=== PATIENT | male | born 1990 | race Caucasian/White ===

== ENCOUNTER 2023-06-04 19:29 | Emergency (ER) | payer OTHER, SELFPAY ==
[2023-06-04] VITALS (21 sets, daily range): BP systolic 123–152; BP diastolic 74–108; PULSE 78–98; RESP 14–25; TEMP 36.9; O2SAT 95–98; BMI 25.7
[2023-06-04] MEDS: EPINEPHrine 1 MG/ML 0.3 MG IM (19:40)
[2023-06-04] MEDS: methylPREDNISolone 125 MG/2 ML VIAL IV (19:40)
[2023-06-04] MEDS: SODIUM CHLORIDE 0.9% 1,000 ML 1000 ML IV (19:41)
[2023-06-04] MEDS: diphenhydrAMINE 50 MG/ML VIAL IV (19:41)
[2023-06-04] MEDS: FAMOTIDINE 20 MG/2 ML VIAL IV (19:41)
[2023-06-04] MEDS: ALBUTEROL 2.5 MG/3 ML NEB (ADULT) INH (19:41)
[2023-06-04 19:50] LABS: Add Manual Diff / Slide Review NO; Basophils Absolute Auto 0 /uL (0-100); Basophils Percent Auto 0.5 % (0-2); Eosinophils Absolute Auto 100 /uL (0-450); Eosinophils Percent Auto 0.6 % (2-4); Hematocrit 49.8 % (41-53); Hemoglobin 17.4 g/dL (13.5-17.5); Lymphocytes Absolute Auto 2200 /uL (1100-4500); Lymphocytes Percent Auto 23.5 % (25-40); Mean Corpuscular HGB Conc 34.9 % (30-36); Mean Corpuscular Volume 91.7 fL (80-100); Monocytes Absolute Auto 600 /uL (0-900); Monocytes Percent Auto 6.5 % (3-14); Neutrophils Absolute Auto 6500 /uL (1500-7000); Neutrophils Percent Auto 68.9 % (50-75); Platelet Count 250 X10^3/uL (150-400); Red Blood Cell Count 5.43 X10^6/uL (4.5-5.9); Red Cell Distribution Width 12.8 % (11.6-14.8); White Blood Cell Count 9.4 X10^3/uL (4.5-11.0)
[2023-06-04 20:04] LABS: Alanine Aminotransferase 35 IU/L (<50); Albumin 4.6 g/dL (3.5-5.0); Albumin Globulin Ratio 1.3 (1.0-2.8); Alkaline Phosphatase 54 U/L (38-126); Aspartate Aminotransferase 40 IU/L (17-59); BUN Creatinine Ratio 13.1 (6-22); Bilirubin Total 0.8 mg/dL (0.2-1.3); Blood Urea Nitrogen 14 mg/dL (9-20); Calcium 9.6 mg/dL (8.4-10.2); Carbon Dioxide 27 mmol/L (22-32); Chloride 101 mmol/L (98-107); Estimated Glomerular Filt Rate > 60 mL/min (>60); Globulin 3.6 g/dL (1.7-4.1); Glucose 101 mg/dL (70-100); HEMOLYSIS 35 (0-50); Lipase 258 U/L (23-300); Potassium 3.6 mmol/L (3.4-5.1); Sodium 138 mmol/L (137-145); Total Protein 8.2 g/dL (6.3-8.2)
--- NOTE | 2023-06-04 23:32 | ED.ALLEREA ---
HPI - Allergic Reaction General Chief complaint: Allergic Reaction Stated complaint: allergic reaction to crab/trouble breathing Time Seen by Provider: 06/04/23 19:37 Source: patient Mode of arrival: Ambulatory History of Present Illness HPI narrative: 32-year-old gentleman who was that he allergic to crab manage to eat some crab and within 30 minutes was having significant difficulty breathing and presents to the emergency department. He is flushed, complaining of throat tightness, has audible wheeze with some facial swelling developing. He notes no other recent illnesses and has been well until he had crab with his dinner this evening. Related Data Previous Rx's Medication Instructions Recorded epinephrine 0.3 mg/0.3 mL 0.3 mg (0.3 mL) IM Q4H PRN 06/04/23 injection, auto-injector anaphylaxis #2 ea prednisone 10 mg tablet 10 mg PO DAILY #5 tabs 06/04/23 Allergies Allergy/AdvReac Type Severity Reaction Status Date / Time shellfish derived Allergy Difficulty Verified 06/04/23 19:41 Breathing Review of Systems Review of Systems Narrative: Pertinent positive and negative findings as per HPI Patient History Medical History (Updated 06/04/23 @ 23:40 by Citlaly Gaspar MD) Anaphylaxis Exam Initial Vital Signs Initial Vital Signs: Vital Signs Pulse Rate 93 H 06/04/23 19:34 Respiratory Rate 21 06/04/23 19:34 Pulse Oximetry 97 06/04/23 19:34 General: Severe respiratory distress with audible wheeze, facial edema, flushing with worsening urticarial lesions over torso. Still able to speak in full sentences HEENT: Moist mucous membranes, normal sclera with reactive pupils, slight lip swelling, no pharyngeal erythema or obvious edema. No complaints of tongue swelling Neck: No JVD, supple Respiratory: Lungs with significant wheeze in all lung martin and diminished air movement with accessory muscle use Cardiac: Tachycardic but regular Abdomen: Soft, nontender, no flank pain Skin: Flushed with increasing urticarial areas over torso Neurologic: Grossly neurologically intact with no obvious asymmetries or abnormalities Extremities: No trauma, well perfused Psych: Cooperative, appropriate insight and affect Course Orders Ordered: ED Orders 06/04/23 19:40 Complete Blood Count AUTO DIFF Stat Comprehensive Metabolic Panel Stat Lipase Stat Famotidine (Famotidine 20 Mg/2 Ml Vial) 20 mg IV NOW SHAQ Last Admin: 06/04/23 19:41 Dose: 20 mg Documented By: BS Discontinued Medications Albuterol (Albuterol 2.5 Mg/3 Ml Neb (Adult)) 2.5 mg INH NOW ONE Stop: 06/04/23 19:40 Last Admin: 06/04/23 19:41 Dose: 2.5 mg Documented By: BS Diphenhydramine HCl (Diphenhydramine 50 Mg/Ml Vial) 50 mg IV NOW ONE Stop: 06/04/23 19:38 Last Admin: 06/04/23 19:41 Dose: 50 mg Documented By: BS Epinephrine HCl (Epinephrine 1 Mg/Ml) 0.3 mg IM NOW ONE Stop: 06/04/23 19:38 Last Admin: 06/04/23 19:40 Dose: 0.3 mg Documented By: BS Sodium Chloride (Normal Saline 0.9%) 1,000 mls @ 1,000 mls/hr IV BOLUS ONE Stop: 06/04/23 20:36 Last Infusion: 06/04/23 20:45 Dose: Infused Documented By: Admin: 06/04/23 19:41 Dose: 1,000 mls/hr Documented By: FORTUNATO Methylprednisolone (Methylprednisolone 125 Mg/2 Ml Vial) 125 mg IV NOW ONE Stop: 06/04/23 19:38 Last Admin: 06/04/23 19:40 Dose: 125 mg Documented By: FORTUNATO Vital Signs Vital signs: Vital Signs - 8 hr 06/04/23 19:34 06/04/23 19:35 06/04/23 19:35 Temperature Pulse Rate 93 H 96 H Respiratory Rate 21 17 Blood Pressure 139/108 H Pulse Oximetry 97 97 Oxygen Delivery Method 06/04/23 19:37 06/04/23 19:51 06/04/23 19:51 Temperature Pulse Rate 98 H 87 Respiratory Rate 24 19 Blood Pressure 139/108 H 147/95 H Pulse Oximetry 98 98 Oxygen Delivery Method Room Air 06/04/23 19:52 06/04/23 20:00 06/04/23 20:00 Temperature 98.4 F Pulse Rate 79 Respiratory Rate 17 Blood Pressure 152/102 H Pulse Oximetry 96 Oxygen Delivery Method 06/04/23 20:16 06/04/23 20:16 06/04/23 20:30 Temperature Pulse Rate 83 Respiratory Rate 20 Blood Pressure 145/78 H 144/77 H Pulse Oximetry 96 Oxygen Delivery Method 06/04/23 20:30 06/04/23 20:45 06/04/23 20:45 Temperature Pulse Rate 84 80 Respiratory Rate 22 17 Blood Pressure 133/74 Pulse Oximetry 96 97 Oxygen Delivery Method 06/04/23 21:00 06/04/23 21:00 06/04/23 21:15 Temperature Pulse Rate 80 Respiratory Rate 18 Blood Pressure 138/82 123/78 Pulse Oximetry 97 Oxygen Delivery Method 06/04/23 21:15 06/04/23 21:30 06/04/23 21:30 Temperature Pulse Rate 85 83 Respiratory Rate 23 14 Blood Pressure 127/77 Pulse Oximetry 97 95 Oxygen Delivery Method 06/04/23 21:45 06/04/23 21:45 06/04/23 22:00 Temperature Pulse Rate 83 80 Respiratory Rate 21 19 Blood Pressure 129/78 Pulse Oximetry 95 96 Oxygen Delivery Method 06/04/23 22:00 06/04/23 22:15 06/04/23 22:15 Temperature Pulse Rate 84 Respiratory Rate 16 Blood Pressure 132/82 132/80 Pulse Oximetry 96 Oxygen Delivery Method 06/04/23 22:30 06/04/23 22:30 06/04/23 22:45 Temperature Pulse Rate 81 81 Respiratory Rate 25 H 18 Blood Pressure 133/82 Pulse Oximetry 96 96 Oxygen Delivery Method 06/04/23 22:45 06/04/23 23:00 06/04/23 23:00 Temperature Pulse Rate 79 Respiratory Rate 20 Blood Pressure 134/85 130/80 Pulse Oximetry 96 Oxygen Delivery Method MDM - Allergic Reaction Lab Data 06/04/23 19:40 06/04/23 19:40 Labs: Lab Results 06/04/23 Range/Units 19:40 WBC 9.4 (4.5-11.0) X10^3/uL RBC 5.43 (4.5-5.9) X10^6/uL Hgb 17.4 (13.5-17.5) g/dL Hct 49.8 (41-53) % MCV 91.7 (80-100) fL MCH 32.0 (26-34) PG MCHC 34.9 (30-36) % RDW 12.8 (11.6-14.8) % Plt Count 250 (150-400) X10^3/uL Neut % (Auto) 68.9 (50-75) % Lymph % (Auto) 23.5 L (25-40) % [place] % (Auto) 6.5 (3-14) % Eos % (Auto) 0.6 L (2-4) % Baso % (Auto) 0.5 (0-2) % Neut # (Auto) 6500 (9194-8722) /uL Lymph # (Auto) 2200 (4585-1227) /uL [place] # (Auto) 600 (0-900) /uL Eos # (Auto) 100 (0-450) /uL Baso # (Auto) 0 (0-100) /uL Sodium 138 (137-145) mmol/L Potassium 3.6 (3.4-5.1) mmol/L Chloride 101 (98-107) mmol/L Carbon Dioxide 27 (22-32) mmol/L BUN 14 (9-20) mg/dL Creatinine 1.07 (0.66-1.25) mg/dL Estimated GFR > 60 (>60) mL/min BUN/Creatinine Ratio 13.1 (6-22) Glucose 101 H (70-100) mg/dL Calcium 9.6 (8.4-10.2) mg/dL Total Bilirubin 0.8 (0.2-1.3) mg/dL AST 40 (17-59) IU/L ALT 35 (<50) IU/L Alkaline Phosphatase 54 (38-126) U/L Total Protein 8.2 (6.3-8.2) g/dL Albumin 4.6 (3.5-5.0) g/dL Globulin 3.6 (1.7-4.1) g/dL Albumin/Globulin Ratio 1.3 (1.0-2.8) Lipase 258 (23-300) U/L [facility] Narrative Medical decision making narrative: CC: Allergic reaction Complicating co-morbidities: 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 Pertinent findings: CBC is unremarkable Chemistries are reassuring Treatments: Patient was emergently brought back to room 8. 0.3 mg subcutaneous epi was administered while IV access was obtained. Once IV access was obtained he was given Solu-Medrol, Benadryl, Pepcid. Re-evaluations: Patient responded nicely to initial treatments. At 2:00 hours he is re-evaluated and continues to improve. No respiratory distress, no urticarial or erythematous rashes, no wheezing able to speak in complete sentences. Discussion: 32-year-old gentleman with anaphylactic reaction to crab. Has responded nicely to medications. Have asked that he stay in the emergency department for 4 hours after epinephrine to make sure that he does not have recurrent symptoms. He and his partner would much prefer to be discharged home and have decided to sign out against medical advice. I will provide him with post anaphylaxis medications as well as prescription for an EpiPen and strongly encouraged them to return to the ER with any recurrent symptoms this evening. Questions are answered and he signs out against medical advice Discharge Plan Departure Patient Disposition: Left Against Medical Advice Clinical Impression: Anaphylaxis Qualifiers: Encounter type: initial encounter Qualified Code(s): T78.2XXA - Anaphylactic shock, unspecified, initial encounter Instructions: DI for Anaphylaxis Activity Restrictions/Additional Instructions: You had a life-threatening reaction to the crab that you ate today. Each exposure to crab will only get worse. You need to avoid it completely. In the emergency department you are given a shot of epinephrine, steroids, Benadryl, Pepcid and you did respond nicely. Epinephrine will typically wear off around 4 hours. I have requested that you stay in the ER until that point but you have decided that you would prefer to go home. It is vital that if you have recurrent symptoms around 1:00 a.m. or later that you return to the emergency department immediately In the meantime, I am going to suggest a decreasing dose of steroid orally over the next couple of days. I would also recommend a nonsedating antihistamine such as Claritin, Faby or Zyrtec that can be purchased [id number]. I would recommend 1 of these daily for the next week to prevent rebound symptoms. If you are having difficulty sleeping or notice any additional itching, you can use Benadryl in addition to each of these medications. Finally, I have given you a prescription for an EpiPen. I would encourage you to keep this around and immediately available.. If you have another reaction similar to what happened today, please use the EpiPen as directed and come to the emergency room as soon as possible If you find that you are getting worse or develop any new symptoms, please feel free to return to the emergency department for further evaluation. Prescriptions: New prednisone 10 mg tablet 10 mg PO DAILY Qty: 5 0RF epinephrine 0.3 mg/0.3 mL auto-injector 0.3 mg IM Q4H PRN (Reason: anaphylaxis) Qty: 2 1RF Stand Alone Forms: Patient Portal/API, Against Medical Advice
== END 2023-06-04 23:52 | disposition left against medical advice (07) ==
PROVIDERS: Emergency Provider Emergency Medicine
DX: T78.02XA Anaphylactic reaction due to shellfish (crustaceans), initial encounter (principal)
CPT/HCPCS: 36415; 80053; 83690; 85025; 96361; 96372; 96374; 96375; 99284; J0171; J1200; J2930; J7613